=== PATIENT | male | born 1960 | race Caucasian/White ===

== ENCOUNTER 2017-02-10 21:14 | Outpatient (CLI) | payer MEDICAID ==
[~2017-02-10 21:14] MED LIST: ASP81CT PO; BENA20TA2 PO; DILT120C PO; HYDR-1231 PO; HYDR1TAB PO
== END 2017-02-11 06:05 | disposition home or self-care (01) ==
LOC: SLEEP 21:14
PROVIDERS: ATTEND Family Medicine
DX: G47.9 Sleep disorder, unspecified (principal); F39 Unspecified mood [affective] disorder; I10 Essential (primary) hypertension; R06.83 Snoring
CPT/HCPCS: 95810

== ENCOUNTER 2019-05-26 11:51 | Observation (INO) | payer MEDICAID, MEDICARE ==
[~2019-05-26] VITALS: Ht 190.5 cm; Wt 125.5 kg
--- OUTSIDE RECORDS SUMMARY | 2019-05-26 11:56 | XMS REPORT | Continuity of Care Document ---
Author Organization Unknown Address Unknown Allergies Active Description Code Type Severity Reaction Onset Reported/Identified Relationship to Patient Clinical Status Yes NKANo Known Allergies NKA Miscellaneous Allergy Mild N/A 01/02/2010 Medications There is no data. Problems Date Dx Coded Attending Type Code Diagnosis Diagnosed By 01/02/2010 Ot 716.91 01/02/2010 Ot 840.9 01/02/2010 Ot 959.2 01/02/2010 Ot E000.8 01/02/2010 Ot E030 01/02/2010 Ot E849.0 01/02/2010 Ot E880.9 11/02/2014 Ot 729.5 11/02/2014 Ot 729.81 11/02/2014 AMIRA WINSLOW TYPEWRITER OPERATOR AUTOMATIC Ot 840.4 11/02/2014 AMIRA WINSLOW TYPEWRITER OPERATOR AUTOMATIC Ot 959.2 11/02/2014 AMIRA WINSLOW TYPEWRITER OPERATOR AUTOMATIC Ot E000.8 11/02/2014 AMIRA WINSLOW TYPEWRITER OPERATOR AUTOMATIC Ot E818.1 11/24/2014 Ot 729.5 11/24/2014 Ot 729.81 11/24/2014 AMIRA WINSLOW TYPEWRITER OPERATOR AUTOMATIC Ot 840.4 11/24/2014 AMIRA WINSLOW TYPEWRITER OPERATOR AUTOMATIC Ot E000.8 11/24/2014 AMIRA WINSLOW TYPEWRITER OPERATOR AUTOMATIC Ot E888.9 11/24/2014 AMIRA WINSLOW TYPEWRITER OPERATOR AUTOMATIC Ot 840.4 11/24/2014 AMIRA WINSLOW TYPEWRITER OPERATOR AUTOMATIC Ot E000.8 11/24/2014 AMIRA WINSLOW TYPEWRITER OPERATOR AUTOMATIC Ot E888.9 11/26/2014 AMIRA WINSLOW TYPEWRITER OPERATOR AUTOMATIC Ot 780.4 11/26/2014 AMIRA WINSLOW TYPEWRITER OPERATOR AUTOMATIC Ot 840.4 11/26/2014 AMIRA WINSLOW TYPEWRITER OPERATOR AUTOMATIC Ot E000.8 11/26/2014 AMIRA WINSLOW TYPEWRITER OPERATOR AUTOMATIC Ot E849.0 11/26/2014 AMIRA WINSLOW TYPEWRITER OPERATOR AUTOMATIC Ot E888.9 11/26/2014 AMIRA WINSLOW TYPEWRITER OPERATOR AUTOMATIC Ot 780.4 11/26/2014 AMIRA WINSLOW TYPEWRITER OPERATOR AUTOMATIC Ot 840.4 11/26/2014 AMIRA WINSLOW TYPEWRITER OPERATOR AUTOMATIC Ot E000.8 11/26/2014 AMIRA WINSLOW TYPEWRITER OPERATOR AUTOMATIC Ot E849.0 11/26/2014 AMIRA WINSLOW TYPEWRITER OPERATOR AUTOMATIC Ot E888.9 12/15/2014 AMIRA WINSLOW TYPEWRITER OPERATOR AUTOMATIC Ot 840.4 12/15/2014 AMIRA WINSLOW TYPEWRITER OPERATOR AUTOMATIC Ot E000.8 12/15/2014 AMIRA WINSLOW TYPEWRITER OPERATOR AUTOMATIC Ot E888.9 12/17/2014 AMIRA WINSLOW TYPEWRITER OPERATOR AUTOMATIC Ot 840.4 12/17/2014 AMIRA WINSLOW TYPEWRITER OPERATOR AUTOMATIC Ot E000.8 12/17/2014 AMIRA WINSLOW TYPEWRITER OPERATOR AUTOMATIC Ot E888.9 12/17/2014 AMIRA WINSLOW TYPEWRITER OPERATOR AUTOMATIC Ot 780.4 12/17/2014 AMIRA WINSLOW TYPEWRITER OPERATOR AUTOMATIC Ot 840.4 12/17/2014 AMIRA WINSLOW TYPEWRITER OPERATOR AUTOMATIC Ot E000.8 12/17/2014 AMIRA WINSLOW TYPEWRITER OPERATOR AUTOMATIC Ot E849.0 12/17/2014 AMIRA WINSLOW TYPEWRITER OPERATOR AUTOMATIC Ot E888.9 12/18/2014 AMIRA WINSLOW TYPEWRITER OPERATOR AUTOMATIC Ot 780.4 12/18/2014 AMIRA WINSLOW TYPEWRITER OPERATOR AUTOMATIC Ot 840.4 12/18/2014 AMIRA WINSLOW TYPEWRITER OPERATOR AUTOMATIC Ot E000.8 12/18/2014 AMIRA WINSLOW TYPEWRITER OPERATOR AUTOMATIC Ot E849.0 12/18/2014 AMIRA WINSLOW TYPEWRITER OPERATOR AUTOMATIC Ot E888.9 12/25/2014 Ot 729.5 12/25/2014 Ot 729.81 12/25/2014 AMIRA WINSLOW TYPEWRITER OPERATOR AUTOMATIC Ot 840.4 12/25/2014 AMIRA WINSLOW TYPEWRITER OPERATOR AUTOMATIC Ot E000.8 12/25/2014 AMIRA WINSLOW TYPEWRITER OPERATOR AUTOMATIC Ot E888.9 12/25/2014 AMIRA WINSLOW TYPEWRITER OPERATOR AUTOMATIC Ot 780.4 12/25/2014 AMIRA WINSLOW TYPEWRITER OPERATOR AUTOMATIC Ot 840.4 12/25/2014 AMIRA WINSLOW TYPEWRITER OPERATOR AUTOMATIC Ot E000.8 12/25/2014 AMIRA WINSLOW TYPEWRITER OPERATOR AUTOMATIC Ot E849.0 12/25/2014 AMIRA WINSLOW TYPEWRITER OPERATOR AUTOMATIC Ot E888.9 12/25/2014 AMIRA WINSLOW TYPEWRITER OPERATOR AUTOMATIC Ot 780.4 12/25/2014 AMIRA WINSLOW TYPEWRITER OPERATOR AUTOMATIC Ot 840.4 12/25/2014 AMIRA WINSLOW TYPEWRITER OPERATOR AUTOMATIC Ot E000.8 12/25/2014 AMIRA WINSLOW TYPEWRITER OPERATOR AUTOMATIC Ot E849.0 12/25/2014 AMIRA WINSLOW TYPEWRITER OPERATOR AUTOMATIC Ot E888.9 02/04/2015 TESFAYE DO, MARIANGEL F Ot V57.1 02/04/2015 TESFAYE DO, MARIANGEL F Ot V58.78 02/04/2015 TESFAYE DO, MARIANGEL F Ot V57.1 02/04/2015 TESFAYE DO, MARIANGEL F Ot V58.78 02/04/2015 TESFAYE DO, MARIANGEL F Ot V57.1 02/04/2015 TESFAYE DO, MARIANGEL F Ot V58.78 02/12/2015 TESFAYE DO, MARIANGEL F Ot V57.1 02/12/2015 TESFAYE DO, MARIANGEL F Ot V58.78 03/06/2015 TESFAYE DO, MARIANGEL F Ot V57.1 03/06/2015 TESFAYE DO, MARIANGEL F Ot V58.78 03/06/2015 TESFAYE DO, MARIANGEL F Ot V57.1 03/06/2015 TESFAYE DO, MARIANGEL F Ot V58.78 03/06/2015 TESFAYE DO, MARIANGEL F Ot V57.1 03/06/2015 TESFAYE DO, MARIANGEL F Ot V58.78 03/09/2015 AMIRA WINSLOW TYPEWRITER OPERATOR AUTOMATIC Ot 780.4 03/09/2015 AMIRA WINSLOW TYPEWRITER OPERATOR AUTOMATIC Ot 840.4 03/09/2015 AMIRA WINSLOW TYPEWRITER OPERATOR AUTOMATIC Ot E000.8 03/09/2015 AMIRA WINSLOW TYPEWRITER OPERATOR AUTOMATIC Ot E849.0 03/09/2015 AMIRA WINSLOW TYPEWRITER OPERATOR AUTOMATIC Ot E888.9 04/06/2015 TESFAYE DO, MARIANGEL F Ot V57.1 04/06/2015 TESFAYE DO, MARIANGEL F Ot V58.78 04/06/2015 TESFAYE DO, MARIANGEL F Ot V57.1 04/06/2015 TESFAYE DO, MARIANGEL F Ot V58.78 04/07/2015 TESFAYE DO, MARIANGEL F Ot V57.1 04/07/2015 TESFAYE DO, MARIANGEL F Ot V58.78 04/08/2015 TESFAYE DO, MARIANGEL F Ot V57.1 04/08/2015 TESFAYE DO, MARIANGEL Spann Ot V58.78 04/08/2015 TESFAYE DO, MARIANGEL Spann Ot V57.1 04/08/2015 TESFAYE DO, MARIANGEL Spann Ot V58.78 04/09/2015 TESFAYE DO, MARIANGEL Spann Ot V57.1 04/09/2015 TESFAYE DO, MARIANGEL Spann Ot V58.78 05/06/2015 TESFAYE DO, MARIANGEL Spann Ot V57.1 05/06/2015 TESFAYE DO, MARIANGEL Spann Ot V58.78 05/06/2015 TESFAYE DO, MARIANGEL Spann Ot V57.1 05/06/2015 TESFAYE DO, MARIANGEL Spann Ot V58.78 05/07/2015 AMIRA WINSLOW TYPEWRITER OPERATOR AUTOMATIC Ot 840.4 05/07/2015 AMIRA WINSLOW TYPEWRITER OPERATOR AUTOMATIC Ot E000.8 05/07/2015 AMIRA WINSLOW TYPEWRITER OPERATOR AUTOMATIC Ot E888.9 05/07/2015 AMIRA WINSLOW TYPEWRITER OPERATOR AUTOMATIC Ot 780.4 05/07/2015 AMIRA WINSLOW TYPEWRITER OPERATOR AUTOMATIC Ot 840.4 05/07/2015 AMIRA WINSLOW TYPEWRITER OPERATOR AUTOMATIC Ot E000.8 05/07/2015 AMIRA WINSLOW TYPEWRITER OPERATOR AUTOMATIC Ot E849.0 05/07/2015 AMIRA WINSLOW TYPEWRITER OPERATOR AUTOMATIC Ot E888.9 05/07/2015 TESFAYE DO, MARIANGEL Spann Ot V57.1 05/07/2015 TESFAYE DO, MARIANGEL Spann Ot V58.78 06/09/2015 TESFAYE DO, MARIANGEL Spann Ot V57.1 06/09/2015 TESFAYE DO, MARIANGEL Spann Ot V58.78 06/15/2015 AMIRA WINSLOW TYPEWRITER OPERATOR AUTOMATIC Ot 840.4 06/15/2015 AMIRA WINSLOW TYPEWRITER OPERATOR AUTOMATIC Ot E000.8 06/15/2015 AMIRA WINSLOW TYPEWRITER OPERATOR AUTOMATIC Ot E888.9 11/25/2015 AURA MOSELEY TYPEWRITER OPERATOR AUTOMATIC Ot M43.16 11/25/2015 AURA MOSELEY TYPEWRITER OPERATOR AUTOMATIC Ot M54.16 02/11/2017 ESTIVEN RENAE MD Ot F39 UNSPECIFIED MOOD [AFFECTIVE] DISORDER 02/11/2017 ESTIVEN RENAE MD Ot G47.9 SLEEP DISORDER, UNSPECIFIED 02/11/2017 ESTIVEN RENAE MD Ot I10 ESSENTIAL (PRIMARY) HYPERTENSION 02/11/2017 ESTIVEN RENAE MD Ot R06.83 SNORING 02/13/2017 ESTIVEN RENAE MD Ot F39 UNSPECIFIED MOOD [AFFECTIVE] DISORDER 02/13/2017 ESTIVEN RENAE MD Ot G47.9 SLEEP DISORDER, UNSPECIFIED 02/13/2017 ESTIVEN RENAE MD Ot I10 ESSENTIAL (PRIMARY) HYPERTENSION 02/13/2017 ESTIVEN RENAE MD Ot R06.83 SNORING Procedures There is no data. Results There is no data. Encounters ACCT No. Visit Date/Time Discharge Status Pt. Type Provider Facility Loc./Unit Complaint [id number] 02/10/2017 21:14:00 02/11/2017 06:05:00 DIS Outpatient ESTIVEN RENAE MD [facility] SLEEP SNORING,HTN,MOOD DISORDER [id number] 11/18/2015 10:30:00 11/18/2015 23:59:59 CLS Outpatient AURA MOSELEY APRN [facility] REHAB [id number] 05/07/2015 08:03:00 06/09/2015 16:18:00 DIS Outpatient TESFAYE HUTCHINS MARIANGEL Zana [facility] REHAB [id number] 04/07/2015 08:57:00 04/07/2015 00:01:00 DIS Outpatient MARIANGEL CARLIN DO [facility] REHAB [id number] 11/24/2014 11:27:00 11/24/2014 23:59:59 CLS Outpatient AMIRA WINSLOW APRN [facility] RAD [id number] 11/11/2014 12:22:00 11/11/2014 23:59:59 CLS Outpatient AMIRA WINSLOW APRN [facility] RAD [id number] 11/02/2014 15:11:00 11/02/2014 16:07:00 DIS Emergency AMIRA WINSLOW APRN [facility] ER [id number] 05/07/2015 13:45:00 Document Registration [id number] 05/07/2015 13:45:00 Document Registration [id number] 08/31/2011 15:34:00 Document Registration [id number] 01/02/2010 09:40:00 Document Registration [email or web address] 05/07/2015 08:03:32 ACT Document Registration
[2019-05-26 12:16] LABS: BASOPHILS # (AUTO) 0.1 10^3/uL (0.0-0.1); BASOPHILS % (AUTO) 1 % (0-10); EOSINOPHILS # (AUTO) 0.5 10^3/uL (0.0-0.3); EOSINOPHILS % (AUTO) 4 % (0-10); HEMATOCRIT 50 % (40-54); HEMOGLOBIN 16.6 G/DL (13.3-17.7); LYMPHOCYTES # (AUTO) 4.1 X 10^3 (1.0-4.0); LYMPHOCYTES % (AUTO) 35 % (12-44); MEAN CORPUSCULAR HEMOGLOBIN 31 PG (25-34); MEAN CORPUSCULAR HGB CONC 33 G/DL (32-36); MEAN CORPUSCULAR VOLUME 93 FL (80-99); MEAN PLATELET VOLUME 11.2 FL (7.4-10.4); MONOCYTES # (AUTO) 1.6 X 10^3 (0.0-1.0); MONOCYTES % (AUTO) 14 % (0-12); NEUTROPHILS # (AUTO) 5.4 X 10^3 (1.8-7.8); NEUTROPHILS % (AUTO) 46 % (42-75); PLATELET COUNT 183 10^3/uL (130-400); RED CELL DISTRIBUTION WIDTH 14.5 % (10.0-14.5); WHITE BLOOD COUNT 11.7 10^3/uL (4.3-11.0)
--- NOTE | 2019-05-26 12:20 | ED Neurological Problem ---
General Chief Complaint: Neuro-Stroke Like Symptoms Stated Complaint: BP 170/110, MEMORY ISSUES Nursing Triage Note: PT AMB TO RM 9 WITH COMPLAINT OF MEMORY LOSS. PT KNOWS NAME, BUT CANNOT STATE DATE, YEAR OR PRESIDENT. STATES SYMPYOTMS START AROUND 1130. LKWT 0930. Nursing Sepsis Screen: No Definite Risk Source: patient Exam Limitations: no limitations History of Present Illness Date Seen by Provider: May 26, 2019 Time Seen by Provider: 11:57 Initial Comments Here with report of memory loss that was noted at about 11:30 AM this morning. Last him well time 0 9:30 this morning. notes that he was acting confused and could not state information that should've been known to have like when he did yesterday. Confused as to date and year. Currently does know where he is at and who he and his are. Patient seems afraid and somewhat anxious. noted that his blood pressure was elevated. Denies nausea, vomiting, chest pain or breathing problems. Never had anything like this before. Timing/Duration: 1-3 hours Severity: moderate Associated Symptoms: confusion; No fever/chills, No nausea/vomiting, No par esthesia, No slurred speech, No trouble walking, No weakness Allergies and Home Medications Allergies Coded Allergies: NKANo Known Allergies (Verified Allergy, Mild, 05/26/19) Home Medications Aspirin 81 Mg Chew, 81 MG PO DAILY, (Reported) Atorvastatin Calcium 10 Mg Tablet, 10 MG PO HS Prescribed by: HERMELINDA DYSON on 05/27/19730 Benazepril Hcl 20 Mg Tablet, 40 MG PO DAILY, (Reported) Diltiazem Hcl 120 Mg Cap.sr.24h, 120 MG PO DAILY, (Reported) Omeprazole 20 Mg Capsule.dr, 20 MG PO DAILY Prescribed by: HERMELINDA DYSON on 05/27/19730 Patient Home Medication List Home Medication List Reviewed: Yes Review of Systems Review of Systems Constitutional: see HPI; No chills, No fever Eyes: No Symptoms Reported Ears, Nose, Mouth, Throat: no symptoms reported Respiratory: No cough, No short of breath Cardiovascular: No chest pain, No edema, No palpitations Gastrointestinal: No abdominal pain, No nausea, No vomiting Genitourinary: no symptoms reported Musculoskeletal: no symptoms reported Skin: no symptoms reported Psychiatric/Neurological: See HPI, Cognitive Dysfunction; Denies Numbness, Denies Tingling, Denies Weakness Endocrine: No Symptoms Reported All Other Systems Reviewed Negative Unless Noted: Yes Past Laarwqg-Ufeopb-Muiofd Hx Past Med/Social Hx: Reviewed Nursing Past Med/Soc Hx Patient Social History Alcohol Use: Occasionally Uses Alcohol Beverage of Choice: Beer Recreational Drug Use: No Smoking Status: Current Everyday Smoker Type Used: Cigarettes Recent Foreign Travel: No Contact w/Someone Who Travel: No Recent Infectious Disease Expo: No Physical Abuse: No Sexual Abuse: No Mistreated: No Fear: No Immunizations Up To Date Tetanus Booster (TDap): Unknown PED Vaccines UTD: Yes Past Medical History Surgeries: Yes Orthopedic Respiratory: Yes Asthma Cardiac: Yes Hypertension Neurological: No Gastrointestinal: No Musculoskeletal: No Endocrine: No Cancer: No Psychosocial: No Family Medical History Reviewed Nursing Family Hx No Pertinent Family Hx Physical Exam Vital Signs Vital Signs - First Documented 05/26/19 11:58 Temp 97.8 Pulse 84 Resp 14 B/P (MAP) 156/112 (127) Pulse Ox 96 O2 Delivery Room Air Capillary Refill : Less Than 3 Seconds Height, Weight, BMI Height: 6'3.00" Weight: 260lbs. oz. 117.309776op; BMI Method:Stated General Appearance: WD/WN, mild distress (anxious) HEENT: PERRL/EOMI (pinpoint bilateral), pharynx normal Neck: full range of motion, supple Respiratory: lungs clear, normal breath sounds Cardiovascular: regular rate, rhythm, no murmur Gastrointestinal: non tender, soft Back: normal inspection, no CVA tenderness, no vertebral tenderness Extremities: non-tender, normal inspection Neurologic/Psychiatric: alert, oriented x 3 Crainal Nerves: normal hearing, normal speech, PERRL, other (cannot state year. Had difficulty with month.) Coordination/Gait: normal finger to nose, normal gait Motor/Sensory: no motor deficit, no sensory deficit, no pronator drift Skin: normal color, warm/dry Stroke NIH Stroke Scale Assessment Level of Consciousness: 0=Alert (0), Level of Consciousness-Questions: 1=Answers one question (1), LOC Commands: 0=Performs both tasks (0), Visual Mantilla: 0=No visual loss (0), Facial Movement (Facial Paresis): 0=Normal symmetrical mnt (0), Motor Function-Arms Right: 0=No drift (0), Motor Function-Arms Left: 0=No drift (0), Motor Function-Legs Right: 0=No drift (0), Motor Function-Legs Left: 0=No drift (0), Limb Ataxia: 0=Absent (0), Sensory: 0=Normal:no loss (0), Best Language: 0=No aphasia (0), Dysarthria: 0=Normal (0), Extinction & Inattention: 0=No abnormality (0), Total: Progress/Results/Core Measures Results/Orders Lab Results Laboratory Tests Test 05/26/19 12:04 05/26/19 12:05 05/26/19 13:30 Range/Units Glucometer 88 70-110 MG/DL White Blood Count 11.7 H 4.3-11.0 10^3/uL Red Blood Count 5.35 4.35-5.85 10^6/uL Hemoglobin 16.6 13.3-17.7 G/DL Hematocrit 50 40-54 % Mean Corpuscular Volume 93 80-99 FL Mean Corpuscular Hemoglobin 31 25-34 PG Mean Corpuscular Hemoglobin Concent 33 32-36 G/DL Red Cell Distribution Width 14.5 10.0-14.5 % Platelet Count 183 130-400 10^3/uL Mean Platelet Volume 11.2 H 7.4-10.4 FL Neutrophils (%) (Auto) 46 42-75 % Lymphocytes (%) (Auto) 35 12-44 % Monocytes (%) (Auto) 14 H 0-12 % Eosinophils (%) (Auto) 4 0-10 % Basophils (%) (Auto) 1 0-10 % Neutrophils # (Auto) 5.4 1.8-7.8 X 10^3 Lymphocytes # (Auto) 4.1 H 1.0-4.0 X 10^3 Monocytes # (Auto) 1.6 H 0.0-1.0 X 10^3 Eosinophils # (Auto) 0.5 H 0.0-0.3 10^3/uL Basophils # (Auto) 0.1 0.0-0.1 10^3/uL Prothrombin Time 12.9 12.2-14.7 SEC INR Comment 0.9 0.8-1.4 Activated Partial Thromboplast Time 28 24-35 SEC D-Dimer 0.26 0.00-0.49 UG/ML Sodium Level 142 135-145 MMOL/L Potassium Level 4.2 3.6-5.0 MMOL/L Chloride Level 105 98-107 MMOL/L Carbon Dioxide Level 25 21-32 MMOL/L Anion Gap 12 5-14 MMOL/L Blood Urea Nitrogen 14 7-18 MG/DL Creatinine 0.97 0.60-1.30 MG/DL Estimat Glomerular Filtration Rate > 60 BUN/Creatinine Ratio 14 Glucose Level 87 70-105 MG/DL Calcium Level 10.0 8.5-10.1 MG/DL Corrected Calcium 9.7 8.5-10.1 MG/DL Total Bilirubin 0.5 0.1-1.0 MG/DL Aspartate Amino Transf (AST/SGOT) 16 5-34 U/L Alanine Aminotransferase (ALT/SGPT) 25 0-55 U/L Alkaline Phosphatase 80 40-136 U/L Troponin I < 0.028 <0.028 NG/ML Total Protein 7.3 6.4-8.2 GM/DL Albumin 4.4 3.2-4.5 GM/DL Thyroid Stimulating Hormone (TSH) 1.99 0.35-4.94 UIU/ML Urine Color YELLOW Urine Clarity CLEAR Urine pH 7 5-9 Urine Specific [place] 1.005 L 1.016-1.022 Urine Protein NEGATIVE NEGATIVE Urine Glucose (UA) NEGATIVE NEGATIVE Urine Ketones NEGATIVE NEGATIVE Urine Nitrite NEGATIVE NEGATIVE Urine Bilirubin NEGATIVE NEGATIVE Urine Urobilinogen NORMAL NORMAL MG/DL Urine Leukocyte Esterase NEGATIVE NEGATIVE Urine RBC (Auto) 1+ H NEGATIVE Urine RBC RARE /HPF Urine WBC NONE /HPF Urine Squamous Epithelial Cells NONE /HPF Urine Crystals NONE /LPF Urine Bacteria NEGATIVE /HPF Urine Casts NONE /LPF Urine Mucus NEGATIVE /LPF Urine Culture Indicated NO Urine Opiates Screen NEGATIVE NEGATIVE Urine Oxycodone Screen NEGATIVE NEGATIVE Urine Methadone Screen NEGATIVE NEGATIVE Urine Propoxyphene Screen NEGATIVE NEGATIVE Urine Barbiturates Screen NEGATIVE NEGATIVE Ur Tricyclic Antidepressants Screen NEGATIVE NEGATIVE Urine Phencyclidine Screen NEGATIVE NEGATIVE Urine Amphetamines Screen NEGATIVE NEGATIVE Urine Methamphetamines Screen NEGATIVE NEGATIVE Urine Benzodiazepines Screen NEGATIVE NEGATIVE Urine Cocaine Screen NEGATIVE NEGATIVE Urine Cannabinoids Screen NEGATIVE NEGATIVE My Orders Orders - ROBERTO ROMANO MD Cbc With Automated Diff (05/26/19 12:04) Protime With Inr (05/26/19 12:04) Partial Thromboplastin Time (05/26/19 12:04) Comprehensive Metabolic Panel (05/26/19 12:04) Fibrin Degradation Products (05/26/19 12:04) Troponin I (05/26/19 12:04) Ua Culture If Indicated (05/26/19 12:04) Chest 1 View, Ap/Pa Only (05/26/19 12:04) Ekg Tracing (05/26/19 12:04) Nothing By Mouth (05/26/19 Dinner) Accucheck Stat ONCE (05/26/19 12:04) Ed Iv/Invasive Line Start (05/26/19 12:04) Vital Signs Stroke Patient Q15M (05/26/19 12:04) Ct Head Wo-R/O Stroke (05/26/19 12:04) O2 (05/26/19 12:04) Intake & Output 06,14,22 (05/26/19 12:04) Monitor-Rhythm Ecg Trace Only (05/26/19 12:04) Dysphagia Screening Tool (05/26/19 12:04) Lipid Panel (05/27/19 06:00) Ct Angio Head/Neck (05/26/19 12:40) Iohexol Injection (Omnipaque 350 Mg/Ml 1 (05/26/19 13:00) Received Contrast (Hold Metformin- Contr (05/26/19 13:00) Ns (Ivpb) (Sodium Chloride 0.9% Ivpb Bag (05/26/19 13:00) Ed Iv/Invasive Line Start (05/26/19 14:10) Lactated Ringers (Lr 1000 Ml Iv Solution (05/26/19 14:10) Thyroid Stimulating Hormone (05/26/19 14:11) Lactated Ringers (Lr 1000 Ml Iv Solution (05/26/19 14:05) Drug Screen Stat (Urine) (05/26/19 14:21) Vital Signs/I&O 05/26/19 11:58 Temp 97.8 Pulse 84 Resp 14 B/P (MAP) 156/112 (127) Pulse Ox 96 O2 Delivery Room Air 05/27/19 00:00 Intake Total 1000 ml Balance 1000 ml Blood Pressure Mean: 127 FSBG Bedside Testing Finger Stick Blood Glucose: 88 Progress Progress Note : Progress Note Seen in our evaluated. Patient has no focal deficits other than memory impairment. We will initiate stroke protocol order set. IV, labs, EKG and chest x-ray ordered. CT head ordered. Ultimately CT angiogram of the head and neck was ordered as well. Patient remains 0 on the stroke scale and no indication for TPA. Appears to be more in line with transient global amnesia. I did discuss the case with the stroke neurologist, Dr. Lake, [facility]. We reviewed all the findings and concerns and this does appear to be similar to transient global amnesia. She is recommending observation overnight and MRI. I did discuss all this with the patient and family. Initially he was somewhat resistant to admission but then agreed. His will stay with him. He is still having repetitive questioning and memory lapse. 1602: I discussed the case with Dr. Jordan and she accepts patient for admission, observation status. Initial ECG Impression Date: May 26, 2019 Initial ECG Impression Time: 12:18 Initial ECG Rate: 79 Initial ECG Rhythm: Normal Sinus Comment Sinus rhythm with normal axis. No evidence of ST elevation [place]. No previous available for comparison. Interpreted by me. Diagnostic Imaging Diagonstic Imaging: CT Plain Films/CT/US/NM/MRI: head Comments NAME: PENELOPE ARECHIGA [facility] REC#: [id number] PT STATUS: REG ER : 1960 PHYSICIAN: ROBERTO ROMANO MD ADMIT DATE: 05/26/19/ER Signed Date of Exam: 05/26/19 CT HEAD WO-R/O STROKE PROCEDURE: CT head wo r/o stroke. TECHNIQUE: Multiple contiguous axial images were obtained through the brain without the use of intravenous contrast. Auto Exposure Controls were utilized during the CT exam to meet ALARA standards for radiation dose reduction. INDICATION: Stroke, confusion. COMPARISON: 11/24/2014. FINDINGS: There is stable age-related cerebral volume loss and chronic small vessel ischemic changes. There is no midline shift or mass effect. There is no hemorrhage or evidence of acute ischemia. No dense vessel sign is seen. There is no mass. The bony calvarium, paranasal sinuses, and mastoids are clear. IMPRESSION: No acute intracranial abnormalities. Dictated by: Dictated on workstation # [id number] Dict: 05/26/19 1242 Trans: 05/26/19 1257 Interpreted by: HAO NUNN Electronically signed by: HAO NUNN 05/26/19 1257 Diagonstic Imaging: Xray Plain Films/CT/US/NM/MRI: chest Comments NAME: PENELOPE ARECHIGA [facility] REC#: [id number] PT STATUS: REG ER : 1960 PHYSICIAN: ROBERTO ROMANO MD ADMIT DATE: 05/26/19/ER Signed Date of Exam: 05/26/19 CHEST 1 VIEW, AP/PA ONLY INDICATION: Memory loss. COMPARISON: None. FINDINGS: Single view of the chest demonstrates clear lungs bilaterally. The heart is normal. There is no pneumothorax. Osseous structures are age-appropriate. IMPRESSION: Negative chest. Dictated by: Dictated on workstation # [id number] Dict: 05/26/19 1303 Trans: 05/26/19 1310 Interpreted by: HAO NUNN Electronically signed by: HAO NUNN 05/26/19 1310 Diagonstic Imaging: CT Plain Films/CT/US/NM/MRI: head Comments NAME: PENELOPE ARECHIGA [facility] REC#: [id number] PT STATUS: REG ER : 1960 PHYSICIAN: ROBERTO ROMANO MD ADMIT DATE: 05/26/19/ER Signed Date of Exam: 05/26/19 CT ANGIO HEAD/NECK PROCEDURE: CT angiography of the head and CT angiography of the neck with and without contrast. TECHNIQUE: Contiguous noncontrast images were obtained from the skull base through the vertex. After intravenous contrast administration, helical CT angiography of the neck was performed. Source data was reformatted into multiple MIP projections. Delayed post contrast acquisition was also obtained. Auto Exposure Controls were utilized during the CT exam to meet ALARA standards for radiation dose reduction. INDICATION: Stroke, memory loss. COMPARISON: None. FINDINGS: Visualized arch anatomy is normal. Origins of the great vessels are intact. There is mild atherosclerosis of the bilateral common carotid bulbs. No stenosis is seen. There is no dissection. Vertebral arteries are grossly normal. The visualized portions of the jackson of [place], distal intracranial branches and venous structures are normal. The course and caliber of the basilar artery is normal. There is no aneurysm or AVM. No large vessel occlusion is seen. There is no abnormal enhancement or mass. IMPRESSION: 1. Mild atherosclerosis of the bilateral carotid bulbs. No stenosis identified. 2. No large vessel occlusion identified. 3. No aneurysm, AVM, or mass. Dictated by: Dictated on workstation # [id number] Dict: 05/26/19 1324 Trans: 05/26/19 1410 Interpreted by: HAO NUNN Electronically signed by: HAO NUNN 05/26/19 1410 Departure Communication (Admissions) Time/Spoke to Admitting Phy: 16:02 Impression Primary Impression: Transient global amnesia Disposition: ADMITTED INPATIENT Condition: Stable Admissions Decision to Admit Reason: Admit from ER (General) Decision to Admit/Date: May 26, 2019 Time/Decision to Admit Time: 16:02 Departure-Patient Inst. Referrals: [facility] [place] (PCP) Primary Care Physician DONNELL JARAMILLO APRN (Family) Primary Care Physician Scripts Omeprazole (Omeprazole) 20 Mg Capsule. 20 MG PO DAILY for 30 Days, #30 CAP Prov: CESAR JORDAN DO 05/27/19 Atorvastatin Calcium (Atorvastatin Calcium) 10 Mg Tablet 10 MG PO HS for 30 Days, #30 TAB Prov: CESAR JORDAN DO 05/27/19 ROBERTO ROMANO MD May 26, 2019 12:20
[2019-05-26 12:30] LABS: INR 0.9 (0.8-1.4); PROTHROMBIN TIME PATIENT 12.9 SEC (12.2-14.7)
[2019-05-26 12:31] LABS: FIBRIN DEGRADATION PRODUCTS 0.26 UG/ML (0.00-0.49)
[2019-05-26 12:33] LABS: ALANINE AMINOTRANSFERASE 25 U/L (0-55); ALBUMIN 4.4 GM/DL (3.2-4.5); ALKALINE PHOSPHATASE 80 U/L (40-136); BILIRUBIN,TOTAL 0.5 MG/DL (0.1-1.0); BUN/CREATININE RATIO 14; CARBON DIOXIDE 25 MMOL/L (21-32); CHLORIDE 105 MMOL/L (98-107); CREATININE SERUM 0.97 MG/DL (0.60-1.30); GFR ESTIMATED > 60; GLUCOSE 87 MG/DL (70-105); POTASSIUM 4.2 MMOL/L (3.6-5.0); SODIUM 142 MMOL/L (135-145); TOTAL PROTEIN 7.3 GM/DL (6.4-8.2)
--- NOTE | 2019-05-26 12:46 | Diagnostic Imaging Report ---
PROCEDURE: CT head wo r/o stroke. TECHNIQUE: Multiple contiguous axial images were obtained through the brain without the use of intravenous contrast. Auto Exposure Controls were utilized during the CT exam to meet ALARA standards for radiation dose reduction. INDICATION: Stroke, confusion. COMPARISON: 11/24/2014. FINDINGS: There is stable age-related cerebral volume loss and chronic small vessel ischemic changes. There is no midline shift or mass effect. There is no hemorrhage or evidence of acute ischemia. No dense vessel sign is seen. There is no mass. The bony calvarium, paranasal sinuses, and mastoids are clear. IMPRESSION: No acute intracranial abnormalities. Dictated by: Dictated on workstation # [id number]
[2019-05-26] MEDS ORDERED: IOHEXOL 350 MG/ML 100 ML (OMNIPAQUE 350) VIAL IV ONE (13:00)
[2019-05-26] MEDS ORDERED: HOLD METFORMIN - RECEIVED CONTRAST 20 ML VIAL IV SCH (13:00)
[2019-05-26] MEDS ORDERED: NS 100 ML (IVPB) BAG IV ONE (13:00)
--- NOTE | 2019-05-26 13:06 | Diagnostic Imaging Report ---
INDICATION: Memory loss. COMPARISON: None. FINDINGS: Single view of the chest demonstrates clear lungs bilaterally. The heart is normal. There is no pneumothorax. Osseous structures are age-appropriate. IMPRESSION: Negative chest. Dictated by: Dictated on workstation # [id number]
--- NOTE | 2019-05-26 13:34 | Diagnostic Imaging Report ---
PROCEDURE: CT angiography of the head and CT angiography of the neck with and without contrast. TECHNIQUE: Contiguous noncontrast images were obtained from the skull base through the vertex. After intravenous contrast administration, helical CT angiography of the neck was performed. Source data was reformatted into multiple MIP projections. Delayed post contrast acquisition was also obtained. Auto Exposure Controls were utilized during the CT exam to meet ALARA standards for radiation dose reduction. INDICATION: Stroke, memory loss. COMPARISON: None. FINDINGS: Visualized arch anatomy is normal. Origins of the great vessels are intact. There is mild atherosclerosis of the bilateral common carotid bulbs. No stenosis is seen. There is no dissection. Vertebral arteries are grossly normal. The visualized portions of the havas[place] of [place], distal intracranial branches and venous structures are normal. The course and caliber of the basilar artery is normal. There is no aneurysm or AVM. No large vessel occlusion is seen. There is no abnormal enhancement or mass. IMPRESSION: 1. Mild atherosclerosis of the bilateral carotid bulbs. No stenosis identified. 2. No large vessel occlusion identified. 3. No aneurysm, AVM, or mass. Dictated by: Dictated on workstation # [id number]
[2019-05-26 13:39] LABS: BILIRUBIN,URINE NEGATIVE (NEGATIVE); CLARITY,URINE CLEAR; COLOR,URINE YELLOW; GLUCOSE, URINE (UA) NEGATIVE (NEGATIVE); KETONES,URINE NEGATIVE (NEGATIVE); LEUKOCYTE ESTERASE ,URINE NEGATIVE (NEGATIVE); NITRITE,URINE NEGATIVE (NEGATIVE); PH,URINE 7 (5-9); PROTEIN,URINE NEGATIVE (NEGATIVE); UROBILINOGEN,URINE NORMAL (NORMAL)
[2019-05-26 13:46] LABS: RBC,URINE RARE /HPF
[2019-05-26 13:47] LABS: BACTERIA,URINE NEGATIVE /HPF
[2019-05-26] MEDS ORDERED: LACTATED RINGERS 1,000 ML IV ONE ×2 (14:05→14:10)
[2019-05-26 14:50] LABS: AMPHETAMINE SCREEN, URINE NEGATIVE (NEGATIVE); BARBITURATE SCREEN URINE NEGATIVE (NEGATIVE); BENZODIAZEPINES SCREEN URINE NEGATIVE (NEGATIVE); CANNABINOID SCREEN, URINE NEGATIVE (NEGATIVE); COCAINE SCREEN URINE NEGATIVE (NEGATIVE); METHADONE STAT NEGATIVE (NEGATIVE); METHAMPHETAMINE SCREEN URINE S NEGATIVE (NEGATIVE); OPIATE SCREEN URINE NEGATIVE (NEGATIVE); OXYCODONE STAT NEGATIVE (NEGATIVE); PROPOXYPHENE STAT NEGATIVE (NEGATIVE); TRICYCLIC ANTIDEPRESSANTS SCRE NEGATIVE (NEGATIVE)
--- OUTSIDE RECORDS SUMMARY | 2019-05-26 16:39 | XMS REPORT | Continuity of Care Document ---
[...] 729.5 11/02/2014 Ot 729.81 11/02/2014 AMIRA WINSLOW ROLL EDGE MACHINE OPERATOR Ot 840.4 11/02/2014 AMIRA WINSLOW ROLL EDGE MACHINE OPERATOR Ot 959.2 11/02/2014 AMIRA WINSLOW ROLL EDGE MACHINE OPERATOR Ot E000.8 11/02/2014 AMIRA WINSLOW ROLL EDGE MACHINE OPERATOR Ot E818.1 11/24/2014 Ot 729.5 11/24/2014 Ot 729.81 11/24/2014 AMIRA WINSLOW ROLL EDGE MACHINE OPERATOR Ot 840.4 11/24/2014 AMIRA WINSLOW ROLL EDGE MACHINE OPERATOR Ot E000.8 11/24/2014 AMIRA WINSLOW ROLL EDGE MACHINE OPERATOR Ot E888.9 11/24/2014 AMIRA WINSLOW ROLL EDGE MACHINE OPERATOR Ot 840.4 11/24/2014 AMIRA WINSLOW ROLL EDGE MACHINE OPERATOR Ot E000.8 11/24/2014 AMIRA WINSLOW ROLL EDGE MACHINE OPERATOR Ot E888.9 11/26/2014 AMIRA WINSLOW ROLL EDGE MACHINE OPERATOR Ot 780.4 11/26/2014 AMIRA WINSLOW ROLL EDGE MACHINE OPERATOR Ot 840.4 11/26/2014 AMIRA WINSLOW ROLL EDGE MACHINE OPERATOR Ot E000.8 11/26/2014 AMIRA WINSLOW ROLL EDGE MACHINE OPERATOR Ot E849.0 11/26/2014 AMIRA WINSLOW ROLL EDGE MACHINE OPERATOR Ot E888.9 11/26/2014 AMIRA WINSLOW ROLL EDGE MACHINE OPERATOR Ot 780.4 11/26/2014 AMIRA WINSLOW ROLL EDGE MACHINE OPERATOR Ot 840.4 11/26/2014 AMIRA WINSLOW ROLL EDGE MACHINE OPERATOR Ot E000.8 11/26/2014 AMIRA WINSLOW ROLL EDGE MACHINE OPERATOR Ot E849.0 11/26/2014 AMIRA WINSLOW ROLL EDGE MACHINE OPERATOR Ot E888.9 12/15/2014 AMIRA WINSLOW ROLL EDGE MACHINE OPERATOR Ot 840.4 12/15/2014 AMIRA WINSLOW ROLL EDGE MACHINE OPERATOR Ot E000.8 12/15/2014 AMIRA WINSLOW ROLL EDGE MACHINE OPERATOR Ot E888.9 12/17/2014 AMIRA WINSLOW ROLL EDGE MACHINE OPERATOR Ot 840.4 12/17/2014 AMIRA WINSLOW ROLL EDGE MACHINE OPERATOR Ot E000.8 12/17/2014 AMIRA WINSLOW ROLL EDGE MACHINE OPERATOR Ot E888.9 12/17/2014 AMIRA WINSLOW ROLL EDGE MACHINE OPERATOR Ot 780.4 12/17/2014 AMIRA WINSLOW ROLL EDGE MACHINE OPERATOR Ot 840.4 12/17/2014 AMIRA WINSLOW ROLL EDGE MACHINE OPERATOR Ot E000.8 12/17/2014 AMIRA WINSLOW ROLL EDGE MACHINE OPERATOR Ot E849.0 12/17/2014 AMIRA WINSLOW ROLL EDGE MACHINE OPERATOR Ot E888.9 12/18/2014 AMIRA WINSLOW ROLL EDGE MACHINE OPERATOR Ot 780.4 12/18/2014 AMIRA WINSLOW ROLL EDGE MACHINE OPERATOR Ot 840.4 12/18/2014 AMIRA WINSLOW ROLL EDGE MACHINE OPERATOR Ot E000.8 12/18/2014 AMIRA WINSLOW ROLL EDGE MACHINE OPERATOR Ot E849.0 12/18/2014 AMIRA WINSLOW ROLL EDGE MACHINE OPERATOR Ot E888.9 12/25/2014 Ot 729.5 12/25/2014 Ot 729.81 12/25/2014 AMIRA WINSLOW ROLL EDGE MACHINE OPERATOR Ot 840.4 12/25/2014 AMIRA WINSLOW ROLL EDGE MACHINE OPERATOR Ot E000.8 12/25/2014 AMIRA WINSLOW ROLL EDGE MACHINE OPERATOR Ot E888.9 12/25/2014 AMIRA WINSLOW ROLL EDGE MACHINE OPERATOR Ot 780.4 12/25/2014 AMIRA WINSLOW ROLL EDGE MACHINE OPERATOR Ot 840.4 12/25/2014 AMIRA WINSLOW ROLL EDGE MACHINE OPERATOR Ot E000.8 12/25/2014 AMIRA WINSLOW ROLL EDGE MACHINE OPERATOR Ot E849.0 12/25/2014 AMIRA WINSLOW ROLL EDGE MACHINE OPERATOR Ot E888.9 12/25/2014 AMIRA WINSLOW ROLL EDGE MACHINE OPERATOR Ot 780.4 12/25/2014 AMIRA WINSLOW ROLL EDGE MACHINE OPERATOR Ot 840.4 12/25/2014 AMIRA WINSLOW ROLL EDGE MACHINE OPERATOR Ot E000.8 12/25/2014 AMIRA WINSLOW ROLL EDGE MACHINE OPERATOR Ot E849.0 12/25/2014 AMIRA WINSLOW ROLL EDGE MACHINE OPERATOR Ot E888.9 02/04/2015 TESFAYE DO, MARIANGEL F [...] MARIANGEL F Ot V58.78 03/09/2015 AMIRA WINSLOW ROLL EDGE MACHINE OPERATOR Ot 780.4 03/09/2015 AMIRA WINSLOW ROLL EDGE MACHINE OPERATOR Ot 840.4 03/09/2015 AMIRA WINSLOW ROLL EDGE MACHINE OPERATOR Ot E000.8 03/09/2015 AMIRA WINSLOW ROLL EDGE MACHINE OPERATOR Ot E849.0 03/09/2015 AMIRA WINSLOW ROLL EDGE MACHINE OPERATOR Ot E888.9 04/06/2015 TESFAYE DO, MARIANGEL F [...] MARIANGEL Spann Ot V58.78 05/07/2015 AMIRA WINSLOW ROLL EDGE MACHINE OPERATOR Ot 840.4 05/07/2015 AMIRA WINSLOW ROLL EDGE MACHINE OPERATOR Ot E000.8 05/07/2015 AMIRA WINSLOW ROLL EDGE MACHINE OPERATOR Ot E888.9 05/07/2015 AMIRA WINSLOW ROLL EDGE MACHINE OPERATOR Ot 780.4 05/07/2015 AMIRA WINSLOW ROLL EDGE MACHINE OPERATOR Ot 840.4 05/07/2015 AMIRA WINSLOW ROLL EDGE MACHINE OPERATOR Ot E000.8 05/07/2015 AMIRA WINSLOW ROLL EDGE MACHINE OPERATOR Ot E849.0 05/07/2015 AMIRA WINSLOW ROLL EDGE MACHINE OPERATOR Ot E888.9 05/07/2015 TESFAYE DO, MARIANGEL Spann Ot V57.1 05/07/2015 TESFAYE DO, MARIANGEL Spann Ot V58.78 06/09/2015 TESFAYE DO, MARIANGEL Spann Ot V57.1 06/09/2015 TESFAYE DO, MARIANGEL Spann Ot V58.78 06/15/2015 AMIRA WINSLOW ROLL EDGE MACHINE OPERATOR Ot 840.4 06/15/2015 AMIRA WINSLOW ROLL EDGE MACHINE OPERATOR Ot E000.8 06/15/2015 AMIRA WINSLOW ROLL EDGE MACHINE OPERATOR Ot E888.9 11/25/2015 AURA MOSELEY ROLL EDGE MACHINE OPERATOR Ot M43.16 11/25/2015 AURA MOSELEY ROLL EDGE MACHINE OPERATOR Ot M54.16 02/11/2017 ESTIVEN RENAE MD Ot F39 UNSPECIFIED MOOD [AFFECTIVE] DISORDER 02/11/2017 ESTIVEN RENAE MD Ot G47.9 SLEEP DISORDER, UNSPECIFIED 02/11/2017 ESTIVEN RENAE MD Ot I10 ESSENTIAL (PRIMARY) HYPERTENSION 02/11/2017 ESTVIEN RENAE MD, Ot R06.83 SNORING 02/13/2017 ESTIVEN RENAE MD, Ot F39 UNSPECIFIED MOOD [AFFECTIVE] DISORDER 02/13/2017 ESTIVEN RENAE MD, Ot G47.9 SLEEP DISORDER, UNSPECIFIED 02/13/2017 ESTIVEN RENAE MD, Ot I10 ESSENTIAL (PRIMARY) HYPERTENSION 02/13/2017 ESTIVEN RENAE MD, Ot R06.83 SNORING Procedures There is no data. Results Test Result Range Capillary blood glucose measurement by glucometer (mass/volume) - 05/26/19 12:04 Capillary blood glucose measurement by glucometer (mass/volume) 88 mg/dL 70-110 Complete blood count (CBC) with automated white blood cell (WBC) differential - 05/26/19 12:05 Blood leukocytes automated count (number/volume) 11.7 10*3/uL 4.3-11.0 Blood erythrocytes automated count (number/volume) 5.35 10*6/uL 4.35-5.85 Venous blood hemoglobin measurement (mass/volume) 16.6 g/dL 13.3-17.7 Blood hematocrit (volume fraction) 50 % 40-54 Automated erythrocyte mean corpuscular volume 93 [foz_us] 80-99 Automated erythrocyte mean corpuscular hemoglobin (mass per erythrocyte) 31 pg 25-34 Automated erythrocyte mean corpuscular hemoglobin concentration measurement (mass/volume) 33 g/dL 32-36 Automated erythrocyte distribution width ratio 14.5 % 10.0- 14.5 Automated blood platelet count (count/volume) 183 10*3/uL 130-400 Automated blood platelet mean volume measurement 11.2 [foz_us] 7.4-10.4 Automated blood neutrophils/100 leukocytes 46 % 42-75 Automated blood lymphocytes/100 leukocytes 35 % 12-44 Blood monocytes/100 leukocytes 14 % 0-12 Automated blood eosinophils/100 leukocytes 4 % 0-10 Automated blood basophils/100 leukocytes 1 % 0-10 Blood neutrophils automated count (number/volume) 5.4 10*3 1.8-7.8 Blood lymphocytes automated count (number/volume) 4.1 10*3 1.0-4.0 Blood monocytes automated count (number/volume) 1.6 10*3 0.0- 1.0 Automated eosinophil count 0.5 10*3/uL 0.0-0.3 Automated blood basophil count (count/volume) 0.1 10*3/uL 0.0-0.1 PT panel in platelet poor plasma by coagulation assay - 05/26/19 12:05 Prothrombin time (PT) in platelet poor plasma by coagulation assay 12.9 s 12.2-14.7 INR in platelet poor plasma or blood by coagulation assay 0.9 0.8-1.4 Activated partial thromboplastin time (aPTT) in platelet poor plasma bycoagulation assay - 05/26/19 12:05 Activated partial thromboplastin time (aPTT) in platelet poor plasma bycoagulation assay 28 s 24-35 Fibrin D-dimer FEU measurement in platelet poor plasma (mass/volume) - 05/26/19 12:05 Fibrin D-dimer FEU measurement in platelet poor plasma (mass/volume) 0.26 ug/mL 0.00-0.49 Comprehensive metabolic panel - 05/26/19 12:05 Serum or plasma sodium measurement (moles/volume) 142 mmol/L 135-145 Serum or plasma potassium measurement (moles/volume) 4.2 mmol/L 3.6-5.0 Serum or plasma chloride measurement (moles/volume) 105 mmol/L 98-107 Carbon dioxide 25 mmol/L 21-32 Serum or plasma anion gap determination (moles/volume) 12 mmol/L 5-14 Serum or plasma urea nitrogen measurement (mass/volume) 14 mg/dL 7-18 Serum or plasma creatinine measurement (mass/volume) 0.97 mg/dL 0.60-1.30 Serum or plasma urea nitrogen/creatinine mass ratio 14 NRG Serum or plasma creatinine measurement with calculation of estimated glomerular filtration rate > NRG Serum or plasma glucose measurement (mass/volume) 87 mg/dL 70-105 Serum or plasma calcium measurement (mass/volume) 10.0 mg/dL 8.5-10.1 Serum or plasma total bilirubin measurement (mass/volume) 0.5 mg/dL 0.1-1.0 Serum or plasma alkaline phosphatase measurement (enzymatic activity/volume) 80 U/L 40-136 Serum or plasma aspartate aminotransferase measurement (enzymatic activity/volume) 16 U/L 5-34 Serum or plasma alanine aminotransferase measurement (enzymatic activity/volume) 25 U/L 0-55 Serum or plasma protein measurement (mass/volume) 7.3 g/dL 6.4-8.2 Serum or plasma albumin measurement (mass/volume) 4.4 g/dL 3.2-4.5 CALCIUM CORRECTED 9.7 mg/dL 8.5-10.1 Serum or plasma troponin i.cardiac measurement (mass/volume) - 05/26/19 12:05 Serum or plasma troponin i.cardiac measurement (mass/volume) < ng/mL <0.028 THYROID STIMULATING HORMONE - 05/26/19 12:05 THYROID STIMULATING HORMONE 1.99 u[iU]/mL 0.35-4.94 Complete urinalysis with reflex to culture - 05/26/19 13:30 Urine color determination YELLOW NRG Urine clarity determination CLEAR NRG Urine pH measurement by test strip 7 5-9 Specific gravity of urine by test strip 1.005 1.016-1.022 Urine protein assay by test strip, semi-quantitative NEGATIVE NEGATIVE Urine glucose detection by automated test strip NEGATIVE NEGATIVE Erythrocytes detection in urine sediment by light microscopy 1+ NEGATIVE Urine ketones detection by automated test strip NEGATIVE NEGATIVE Urine nitrite detection by test strip NEGATIVE NEGATIVE Urine total bilirubin detection by test strip NEGATIVE NEGATIVE Urine urobilinogen measurement by automated test strip (mass/volume) NORMAL NORMAL Urine leukocyte esterase detection by dipstick NEGATIVE NEGATIVE Automated urine sediment erythrocyte count by microscopy (number/high power field) RARE NRG Automated urine sediment leukocyte count by microscopy (number/high power field) NONE NRG Bacteria detection in urine sediment by light microscopy NEGATIVE NRG Squamous epithelial cells detection in urine sediment by light microscopy NONE NRG Crystals detection in urine sediment by light microscopy NONE NRG Casts detection in urine sediment by light microscopy NONE NRG Mucus detection in urine sediment by light microscopy NEGATIVE NRG Complete urinalysis with reflex to culture NO NRG Urine drug screening test - 05/26/19 13:30 Urine phencyclidine detection by screening method NEGATIVE NEGATIVE Urine benzodiazepines detection by screening method NEGATIVE NEGATIVE Urine cocaine detection NEGATIVE NEGATIVE Urine amphetamines detection by screening method NEGATIVE NEGATIVE Urine methamphetamine detection by screening method NEGATIVE NEGATIVE Urine cannabinoids detection by screening method NEGATIVE NEGATIVE Urine opiates detection by screening method NEGATIVE NEGATIVE Urine barbiturates detection NEGATIVE NEGATIVE Screening urine tricyclic antidepressants detection NEGATIVE NEGATIVE Urine methadone detection by screening method NEGATIVE NEGATIVE Urine oxycodone detection NEGATIVE NEGATIVE Urine propoxyphene detection NEGATIVE NEGATIVE Encounters ACCT No. Visit Date/Time Discharge Status Pt. Type Provider Facility Loc./Unit Complaint [id number] 02/10/2017 21:14:00 02/11/2017 06:05:00 DIS Outpatient ESTIVEN RENAE MD [facility] SLEEP SNORING,HTN,MOOD DISORDER [id number] 11/18/2015 10:30:00 11/18/2015 23:59:59 CLS Outpatient AURA MOSELEY Carlito ROLL EDGE MACHINE OPERATOR [facility] RE[facility]AB [id number] 05/07/2015 08:03:00 06/09/2015 16:18:00 DIS Outpatient TESFAYE DO, MARIANGEL Spann [facility] [id number] 04/07/2015 08:57:00 04/07/2015 00:01:00 DIS Outpatient MARIANGEL CARLIN DO [facility] [id number] 11/24/2014 11:27:00 11/24/2014 23:59:59 CLS Outpatient AMIRA WINSLOW ROLL EDGE MACHINE OPERATOR [facility] RAD [id number] 11/11/2014 12:22:00 11/11/2014 23:59:59 CLS Outpatient AMIRA WINSLOW ROLL EDGE MACHINE OPERATOR [facility] RAD [id number] 11/02/2014 15:11:00 11/02/2014 16:07:00 DIS Emergency AMIRA WINSLOW ROLL EDGE MACHINE OPERATOR [facility] ER [id number] 05/26/2019 12:13:00 Document Registration [id number] 05/07/2015 13:45:00 Document Registration [id number] 05/07/2015 13:45:00 Document Registration [id number] 08/31/2011 15:34:00 Document Registration [id number] 01/02/2010 09:40:00 Document Registration [id number] 05/07/2015 08:03:32 ACT Document Registration
--- NOTE | 2019-05-26 17:15 | NUR ---
PENELOPE ARECHIGA admitted to room 428-1, with an admitting diagnosis of AMNESIA, on 05/26/19 from ED via WC, accompanied by . PENELOPE ARECHIGA introduced to surroundings, call light, bed controls, phone, TV, temperature control, lights, meal times, smoking policy, visitor policy, side rail policy, bathrooms and showers. PENELOPE ARECHIGA verbalizes understanding that [facility] is not responsible for the loss or damage to any personal effects or valuables that are kept in the patients posession during their hospitalization. The following Patient Care Plans were discussed with the PT AND : Discharge Planning, PAIN, AND ALTERED MENTAL STATUS. PENELOPE ARECHIGA verbalizes understanding of Interdisciplinary Patient Education. Patient and/or family were informed about the Rapid Response Team and its purpose. REC'D PER WC FROM ED. ALERT AND ORIENTED X4. SEE ASSESSMENT. AT BEDSIDE.
[2019-05-26 17:34] VITALS: BP 173/94
[2019-05-26] MEDS ORDERED: CATHETER FLUSH 10 ML SYR IV PRN (17:45)
[2019-05-26 17:58] VITALS: BP 167/100
--- NOTE | 2019-05-26 17:59 | NUR ---
DR[facility]
[2019-05-26] MEDS ORDERED: lisINopril 40 MG (PRINIVIL) TABLET ONE (18:05)
[2019-05-26] MEDS ORDERED: DILTIAZEM 240 MG (CARDIZEM CD) CAP PO ONE ×2 (18:09→18:15)
[2019-05-26] MEDS ORDERED: lisINopril 20 MG (PRINIVIL) TABLET PO ONE (18:15)
--- NOTE | 2019-05-26 18:15 | NUR ---
ORDERS REC'D. MEDS GIVEN ORDERED.
[2019-05-26 19:10] VITALS: BP 155/98
[2019-05-26] MEDS ORDERED: diphenhydrAMINE 25 MG TAB (BENADRYL) PO PRN ×3 (20:30→22:00)
[2019-05-26] MEDS: CATHETER FLUSH 10 ML SYR IV SCH (20:52)
[2019-05-26] MEDS ORDERED: ATORVASTATIN 10 MG (LIPITOR) TABLET PO SCH (21:00)
[2019-05-26] MEDS ORDERED: LOPERAMIDE 2 MG (IMODIUM) TABLET PO PRN (21:15)
[2019-05-26] MEDS ORDERED: HYDROcodone/APAP 5 MG/325 MG (LORTAB) TAB PO PRN (21:15)
[2019-05-26] MEDS ORDERED: ACETAMINOPHEN 500 MG TAB (TYLENOL) PO PRN (21:15)
[2019-05-26] MEDS ORDERED: ALPRAZolam 0.25 MG (XANAX) TAB PO PRN (21:15)
[2019-05-26] MEDS ORDERED: ONDANSETRON 4 MG/2 ML (SDV) Z0FRAN IVP PRN (21:15)
[2019-05-26] MEDS ORDERED: DOCUSATE SODIUM 100 MG (COLACE) CAP PO PRN (21:15)
[2019-05-26] MEDS ORDERED: fentaNYL INJECTION 100 MCG/2 ML AMP IVP PRN (21:15)
[2019-05-26] MEDS ORDERED: MELATONIN 3 MG TABLET PO PRN (21:15)
[2019-05-26] MEDS ORDERED: ONDANSETRON 4 MG (ZOFRAN) ORAL DISSOLVE TAB PO PRN (21:15)
[2019-05-26] MEDS ORDERED: CALCIUM CARBONATE 500 MG (TUMS) TAB.CHEW PO PRN (21:15)
[2019-05-27 00:59] VITALS: BP 132/86
[2019-05-27 04:00] VITALS: BP 117/80
[2019-05-27] MEDS: CATHETER FLUSH 10 ML SYR IV SCH ×2 (05:09→13:13)
[2019-05-27 05:51] LABS: BASOPHILS # (AUTO) 0.1 10^3/uL (0.0-0.1); BASOPHILS % (AUTO) 1 % (0-10); EOSINOPHILS # (AUTO) 0.4 10^3/uL (0.0-0.3); EOSINOPHILS % (AUTO) 4 % (0-10); HEMATOCRIT 48 % (40-54); HEMOGLOBIN 15.7 G/DL (13.3-17.7); LYMPHOCYTES # (AUTO) 3.5 X 10^3 (1.0-4.0); LYMPHOCYTES % (AUTO) 35 % (12-44); MEAN CORPUSCULAR HEMOGLOBIN 31 PG (25-34); MEAN CORPUSCULAR HGB CONC 33 G/DL (32-36); MEAN CORPUSCULAR VOLUME 94 FL (80-99); MEAN PLATELET VOLUME 11.4 FL (7.4-10.4); MONOCYTES # (AUTO) 1.2 X 10^3 (0.0-1.0); MONOCYTES % (AUTO) 12 % (0-12); NEUTROPHILS % (AUTO) 49 % (42-75); PLATELET COUNT 177 10^3/uL (130-400); RED CELL DISTRIBUTION WIDTH 14.6 % (10.0-14.5); WHITE BLOOD COUNT 10.2 10^3/uL (4.3-11.0)
[2019-05-27 06:17] LABS: ALANINE AMINOTRANSFERASE 22 U/L (0-55); ALBUMIN 3.9 GM/DL (3.2-4.5); ALKALINE PHOSPHATASE 78 U/L (40-136); BILIRUBIN,TOTAL 0.6 MG/DL (0.1-1.0); BUN/CREATININE RATIO 12; CALCIUM 9.4 MG/DL (8.5-10.1); CARBON DIOXIDE 26 MMOL/L (21-32); CHLORIDE 105 MMOL/L (98-107); CHOLESTEROL 93 MG/DL (< 200); CREATININE SERUM 0.97 MG/DL (0.60-1.30); GFR ESTIMATED > 60; GLUCOSE 102 MG/DL (70-105); HDL CHOLESTEROL 20 MG/DL (40-60); POTASSIUM 4.5 MMOL/L (3.6-5.0); SODIUM 142 MMOL/L (135-145); TOTAL PROTEIN 6.3 GM/DL (6.4-8.2); TRIGLYCERIDES 126 MG/DL (<150); VLDL CHOLESTEROL 25 MG/DL (5-40)
[2019-05-27] MEDS ORDERED: OMEP20CA12 PO ×2 (07:31→09:20)
[2019-05-27] MEDS ORDERED: ATOR10TA66 PO ×2 (07:31→09:20)
[2019-05-27 08:00] VITALS: BP 132/75
[2019-05-27] MEDS ORDERED: DILTIAZEM 240 MG (CARDIZEM CD) CAP PO SCH (09:00)
[2019-05-27] MEDS ORDERED: BENAZEPRIL 40 MG PO SCH (09:00)
[2019-05-27] MEDS ORDERED: SENNA W/DOCUSATE (SENOKOT S) TABLET PO SCH (09:00)
[2019-05-27] MEDS ORDERED: ASPIRIN 81 MG CHEW (CHILDREN'S ASA) PO SCH (09:00)
[2019-05-27] MEDS ORDERED: BENA40TA5 PO (09:20)
[2019-05-27] MEDS ORDERED: ASPI-999 PO (09:20)
[2019-05-27] MEDS ORDERED: OMG1KC PO (09:25)
[2019-05-27] MEDS ORDERED: DILT240C PO (09:25)
[2019-05-27] MEDS ORDERED: TR1C15 TOP (09:27)
--- NOTE | 2019-05-27 09:27 | NUR ---
SPOKE WITH THE PATIENTS ABOUT MEDICATIONS. SHE HAD THREE OF HIS PRESCRIPTION BOTTLES WITH HER BUT NOT THE DILTIAZEM, SHE DID HAVE THE STRENGTH ON HER PHONE. [facility] FILLED DILTIAZEM 24HR 240MG BID #[id number] 03-28-19 - THEY REPORT THEY DID VERIFY WITH THE PRESCRIBED THEY WANTED THE 24HR CAPSULES BID HOWEVER THE PATENT REPORTS HE IS ONLY TAKING IT ONCE DAILY. HE TAKES FISH OIL AND ASPIRIN 81MG DAILY OTC.
--- NOTE | 2019-05-27 10:32 | NUR ---
PRIOR TO A.M. MEDICATIONS PULSE WAS 70 BPM AND B/P WAS 132/75.
[2019-05-27 12:00] VITALS: BP 168/89
--- NOTE | 2019-05-27 12:46 | NUR ---
Initial visit with pt, his Emily, and brother Lon. 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 Lon attends [facility] [facility] [employer] in [place]. Mutually encouraging and loving relationships demonstrated this visit. Pt shared about his recent amnesia, and corresponding fears and feelings resulting from this experience. Surveillance System Monitor offered prayer and compassionate presence.
[2019-05-27] MEDS ORDERED: LORazepam 1 MG (ATIVAN) TAB PO NR (13:27)
[2019-05-27] MEDS ORDERED: CEFA500C PO (15:19)
--- NOTE | 2019-05-27 15:23 | Diagnostic Imaging Report ---
PROCEDURE: MR imaging of the brain without contrast. TECHNIQUE: Multiplanar, multisequence MR imaging of the brain was performed without contrast. INDICATION: Memory loss. COMPARISON: CTA head and neck from 05/26/2019. FINDINGS: No restricted water diffusion or hemosiderin deposition. No abnormal intracranial signal. Mild generalized cerebral and cerebellar parenchymal volume loss. Normal morphology including the major midline structures, sella, posterior fossa, and cerebellopontine angle. No hydrocephalus or extra-axial fluid collections. Normal intracranial flow voids. The orbits are unremarkable. Mucus retention cyst in the floor of the right maxillary sinus measures up to 3.0 cm. The mastoids are clear. Normal bone marrow signal. IMPRESSION: 1. No acute intracranial MRI findings. 2. Mild generalized parenchymal volume loss is age appropriate. 3. Mucus retention cyst in the floor of the right maxillary sinus. Dictated by: Dictated on workstation # [id number]
--- NOTE | 2019-05-28 12:11 | Short Stay Summary ---
History of Present Illness History of Present Illness Reason for visit/HPI 59 yo male brought to hospital due to altered mental status. He remembers waking up and making coffee in the morning, then he went to do some work on a car, and doesn't really even remember driving there. His was with him and reports he was not making sense. He denies any other symptoms, and today feels fine and alert and oriented. He states he does drink alcohol at times and drank quite a bit last weekend, but last drink was 4 days ago. He denies any substance use since many years ago. He does not take any psych meds. Date of Admission May 26, 2019 at 16:04 Date of Discharge May 27, 2019 at 15:55 Time Seen by Provider: 11:00 Attending Physician Rui Myers MD Admitting Physician [place] Consult Allergies and Home Medications Allergies Coded Allergies: NKANo Known Allergies (Verified Allergy, Mild, 05/26/19) Home Medications Aspirin 81 Mg Tab.chew, 81 MG PO DAILY, (Reported) Atorvastatin Calcium 10 Mg Tablet, 10 MG PO HS, (Reported) Benazepril HCl 40 Mg Tab, 40 MG PO DAILY, (Reported) Cefadroxil 500 Mg Capsule, 500 MG PO BID Prescribed by: RUI MYERS on 05/27/19 1519 Diltiazem HCl 240 Mg Cap.er.24h, 240 MG PO DAILY, (Reported) [place] 3 Polyunsat Fatty Acids 1,000 Mg Cap, 1,000 MG PO DAILY, (Reported) Omeprazole 20 Mg Capsule.dr, 20 MG PO DAILY, (Reported) Triamcinolone Acet 15 Gm Cr, TOP BID PRN for BUMPS ON ARMS, (Reported) Patient Home Medication List Home Medication List Reviewed: Yes Past Edkhhad-Baqcfr-Emmuuy Hx Patient Social History Alcohol Use: Occasionally Uses Number of Drinks Today: 0 Alcohol Beverage of Choice: Beer Recreational Drug Use: No Smoking Status: Current Everyday Smoker Type Used: Cigarettes Physical Abuse Screen: No Sexual Abuse: No Recent Foreign Travel: No Contact w/other who traveled: No Recent Hopitalizations: No Recent Infectious Disease Expo: No Immunizations Up To Date Tetanus Booster (TDap): Unknown Pediatric: Yes Seasonal Allergies Seasonal Allergies: No Surgeries Yes Orthopedic Respiratory Yes Currently Using CPAP: No Currently Using BIPAP: No Cardiovascular Yes Hypertension Neurological No Genitourinary No Gastrointestinal No Musculoskeletal No Endocrine History of Endocrine Disorders: No HEENT History of HEENT Disorders: No Cancer No Psychosocial History of Psychiatric Problem: No Integumentary History of Skin or Integumenta: Yes (RASH ON BACK) Skin/Integumentary Disorders: Recent Skin Changes Blood Transfusions History of Blood Disorders: No Family Medical History Significant Family History: No Pertinent Family Hx Review of Systems Constitutional: No fever EENTM: No nose congestion, No throat pain Respiratory: No cough Cardiovascular: No chest pain Gastrointestinal: No abdominal pain, No constipation, No diarrhea, No nausea, No vomiting Genitourinary: No dysuria Musculoskeletal: No joint pain Skin: rash (itchy red bumps on back x 2 weeks after some sun exposure) Psychiatric/Neurological: See HPI Physical Exam Vital Signs Vital Signs - First Documented 05/26/19 11:58 Temp 97.8 Pulse 84 Resp 14 B/P (MAP) 156/112 (127) Pulse Ox 96 O2 Delivery Room Air Capillary Refill : Less Than 3 SecondsLess Than 3 Seconds Height, Weight, BMI Height: 6'3.00" Weight: 276lbs. 10.0oz. 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 Norm as Tested; No Abnormal Cerebellar Tests Skin: Normal Color, Warm/Dry Clinical Quality Measures DVT/VTE Risk/Contraindication: Risk Factor Score Per Nursin RFS Level Per Nursing on Admit: 3=High Short Stay Diagnosis Discharge Diagnosis-Short Stay Admission Diagnosis: Altered mental status Final Discharge Diagnosis: Altered mental status Conclusion Labs Laboratory Tests Test 05/27/19 05:15 05/27/19 05:20 Range/Units Sodium Level 142 135-145 MMOL/L Potassium Level 4.5 3.6-5.0 MMOL/L Chloride Level 105 98-107 MMOL/L Carbon Dioxide Level 26 21-32 MMOL/L Anion Gap 11 5-14 MMOL/L Blood Urea Nitrogen 12 7-18 MG/DL Creatinine 0.97 0.60-1.30 MG/DL Estimat Glomerular Filtration Rate > 60 BUN/Creatinine Ratio 12 Glucose Level 102 70-105 MG/DL Calcium Level 9.4 8.5-10.1 MG/DL Corrected Calcium 9.5 8.5-10.1 MG/DL Total Bilirubin 0.6 0.1-1.0 MG/DL Aspartate Amino Transf (AST/SGOT) 18 5-34 U/L Alanine Aminotransferase (ALT/SGPT) 22 0-55 U/L Alkaline Phosphatase 78 40-136 U/L Total Protein 6.3 L 6.4-8.2 GM/DL Albumin 3.9 3.2-4.5 GM/DL Triglycerides Level 126 <150 MG/DL Cholesterol Level 93 < 200 MG/DL LDL Cholesterol Direct 60 1-129 MG/DL VLDL Cholesterol 25 5-40 MG/DL HDL Cholesterol 20 L 40-60 MG/DL White Blood Count 10.2 4.3-11.0 10^3/uL Red Blood Count 5.07 4.35-5.85 10^6/uL Hemoglobin 15.7 13.3-17.7 G/DL Hematocrit 48 40-54 % Mean Corpuscular Volume 94 80-99 FL Mean Corpuscular Hemoglobin 31 25-34 PG Mean Corpuscular Hemoglobin Concent 33 32-36 G/DL Red Cell Distribution Width 14.6 H 10.0-14.5 % Platelet Count 177 130-400 10^3/uL Mean Platelet Volume 11.4 H 7.4-10.4 FL Neutrophils (%) (Auto) 49 42-75 % Lymphocytes (%) (Auto) 35 12-44 % Monocytes (%) (Auto) 12 0-12 % Eosinophils (%) (Auto) 4 0-10 % Basophils (%) (Auto) 1 0-10 % Neutrophils # (Auto) 5.0 1.8-7.8 X 10^3 Lymphocytes # (Auto) 3.5 1.0-4.0 X 10^3 Monocytes # (Auto) 1.2 H 0.0-1.0 X 10^3 Eosinophils # (Auto) 0.4 H 0.0-0.3 10^3/uL Basophils # (Auto) 0.1 0.0-0.1 10^3/uL Conclusion/Plan Altered mental status- resolved but with unknown etiology, no medications to explain, labs unremarkable and CT head unremarkable, CTA head with mild at herosclerosis of carotid bulbs, no large vessel occlusion, aneurysm, AVM or mass. MRI brain with no acute intracranial findings, mucous retention cyst in right maxillary sinus floor. RUI MYERS MD May 28, 2019 12:11
--- NOTE | 2019-05-28 15:15 | Discharge Instructions ---
Discharge Formerly [facility], 1928–1983 Discharge Medications New Medications: Cefadroxil (Cefadroxil) 500 Mg Capsule 500 MG PO BID for 7 Days, #14 CAP 0 Refills Continued Medications: Aspirin (Aspirin) 81 Mg Tab.chew 81 MG PO DAILY, TAB Atorvastatin Calcium (Atorvastatin Calcium) 10 Mg Tablet 10 MG PO HS, TAB Benazepril HCl (Benazepril HCl) 40 Mg Tab 40 MG PO DAILY, TAB Diltiazem HCl (Diltiazem 24Hr ER) 240 Mg Cap.er.24h 240 MG PO DAILY, CAP [place] 3 Polyunsat Fatty Acids (Fish Oil 1,000 mg Capsule) 1,000 Mg Cap 1000 MG PO DAILY, CAP Omeprazole (Omeprazole) 20 Mg Capsule.dr 20 MG PO DAILY, CAP Triamcinolone Acet (Triamcinolone Acetonide 0.1% Cream) 15 Gm Cr TOP BID PRN for BUMPS ON ARMS, EA Patient Instructions Goal/Follow Up Appt: Follow up with Carolynn Maddox on 05/31 at 2:40 pm. Return to [facility] For: Fever, confusion, weakness Activity & Diet Discharge Diet: Low Sodium Diet Activity as Tolerated: Yes RUI FERRELL MD May 27, 2019 12:00
== END 2019-05-27 15:38 | disposition home or self-care (01) ==
LOC: EDUNIT# 11:51 → ER 11:52 → UNDOADMOB 16:04 → 4TH 16:04 → UNDODISOB 05-27 15:55
PROVIDERS: ADMIT Internal Medicine; ATTEND Family Medicine
DX: R41.82 Altered mental status, unspecified (principal); I10 Essential (primary) hypertension; F17.210 Nicotine dependence, cigarettes, uncomplicated; Z79.899 Other long term (current) drug therapy
CPT/HCPCS: 36415; 70450; 70496; 70498; 70551; 71045; 80053; 80061; 80306; 81000; 82962; 84443; 84484; 85025; 85379; 85610; 85730; 93005; 93041; 96360; G0378

== ENCOUNTER → 2019-11-12 | Outpatient (CLI) | payer MEDICARE ==
[~2019-11-12] MED LIST changes: +ASPI-999 PO; +ATOR10TA66 PO; +BENA40TA5 PO; +CEFA500C PO; +DILT240C PO; +OMEP20CA13 PO; +OMG1KC PO; +TR1C15 TOP
--- NOTE | 2019-11-12 13:41 | Diagnostic Imaging Report ---
INDICATION: Cough. TIME OF EXAM: 1:01 p.m. COMPARISON: Correlation is made with prior chest 05/26/2019. FINDINGS: The heart size is normal. The pulmonary vascularity is unremarkable. The lungs are clear. No infiltrate, effusion or pneumothorax is detected. IMPRESSION: No acute cardiopulmonary process is detected. Dictated by: Dictated on workstation # [id number]
== END ==
LOC: RAD 12:40
PROVIDERS: ATTEND Nurse Practitioner Family
DX: L23.89 Allergic contact dermatitis due to other agents (principal); R05 Cough
CPT/HCPCS: 71046

== ENCOUNTER 2022-10-29 20:24 | Emergency (ER) | payer MEDICARE, MEDICAID ==
[~2022-10-29] VITALS: Ht 190.5 cm; Wt 113.9 kg
[~2022-10-29 20:24] MED LIST changes: -BENA40TA5 PO; +BENA40TA84 PO; -DILT240C PO; +DILT240C91 PO; -OMEP20CA13 PO; +OMEP20CA18 PO
--- NOTE | 2022-10-29 20:34 | ED Abdominal Pain ---
General Stated Complaint: ABD PAIN History of Present Illness Date Seen by Provider: Oct 29, 2022 Time Seen by Provider: 20:34 Initial Comments 62 y/o male presents tonight with c/o severe RUQ pain that started after eating an hour and 45 minutes ago. Pt states he is having chills and had one episode of watery diarrhea. He reports he ate steak and cuban fries just prior to the pain starting. Pain is constant, sharp, stabbing, and does not radiate. He has not taken anything OTC. Has h/o GERD but denies any other GI problems. Timing/Duration: 1 Hour Severity/Quality: Severe, Sharp, Stabbing Location: RUQ Radiation: No Radiation Activities at Onset: None Modifying Factors: Worsens With Eating, Worsens With Palpation Associated Symptoms: No Back Pain, No Chest Pain; Fever/Chills (chills, denies fever); No Fatigue, No Heartburn, No Nausea/Vomiting, No Shortness of Air, No Sw elling/Mass in Abdomen, No Syncope, No Weakness (STEPH TIJERINA APRN) Allergies and Home Medications Allergies Coded Allergies: BARBIEANo Known Allergies (Verified Allergy, Mild, 05/26/19) Patient Home Medication List Home Medication List Reviewed: Yes (STEPH TIJERINA APRN) Aspirin (Aspirin) 81 Mg Tab.chew, 81 MG PO DAILY, (Reported) Entered as Reported by: ARIANNE CROFT on 05/27/19919 Atorvastatin Calcium (Atorvastatin Calcium) 10 Mg Tablet, 10 MG PO HS, (Reported) Entered as Reported by: ARIANNE CROFT on 05/27/19919 Benazepril HCl (Benazepril HCl) 40 Mg Tab, 40 MG PO DAILY, (Reported) Entered as Reported by: ARIANNE CROFT on 05/27/19919 Cefadroxil (Cefadroxil) 500 Mg Capsule, 500 MG PO BID Prescribed by: RUI FERRELL on 05/27/19 1519 Diltiazem HCl (Diltiazem 24Hr ER) 240 Mg Cap.er.24h, 240 MG PO DAILY, (Reported) Entered as Reported by: ARIANNE CROFT on 05/27/19 09 [place] 3 Polyunsat Fatty Acids (Fish Oil 1,000 mg Capsule) 1,000 Mg Cap, 1,000 MG PO DAILY, (Reported) Entered as Reported by: ARIANNE CROFT on 05/27/19 09 Omeprazole (Omeprazole) 20 Mg Capsule.dr, 20 MG PO DAILY, (Reported) Entered as Reported by: ARIANNE CROFT on 05/27/19 09 Triamcinolone Acet (Triamcinolone Acetonide 0.1% Cream) 15 Gm Cr, TOP BID PRN for BUMPS ON ARMS, (Reported) Entered as Reported by: ARIANNE CROFT on 05/27/19 09 Review of Systems Review of Systems Constitutional: chills; No fever, No malaise EENTM: No Symptoms Reported Respiratory: No Symptoms Reported Cardiovascular: No Symptoms Reported Gastrointestinal: Denies Abdomen Distended; Abdominal Pain; Denies Blood Streaked Stools, Denies Constipated; Diarrhea (one episode of watery diarrhea after eating tonight); Denies Nausea, Denies Poor Appetite, Denies Rectal Bleeding, Denies Vomiting Genitourinary: No Symptoms Reported Musculoskeletal: no symptoms reported Skin: no symptoms reported (STEPH TIJERINA APRN) Past Rofcjks-Rfjieq-Yyhync Hx Patient Social History Tobacco Use?: Yes Tobacco type used: Cigarettes Smoking Status: Current Everyday Smoker Substance use?: Yes Substance type: Other (CBD gummies) Alcohol Use?: Yes Alcohol Frequency: Rarely (STEPH TIJERINA APRN) Immunizations Up To Date Tetanus Booster (TDap): Unknown PED Vaccines UTD: Yes (STEPH TIJERINA APRN) Seasonal Allergies Seasonal Allergies: No (STEPH TIJERINA APRN) Past Medical History Surgeries: Yes Gallbladder, Orthopedic Respiratory: Yes Asthma Currently Using CPAP: No Currently Using BIPAP: No Cardiac: Yes Hypertension Neurological: No Genitourinary: No Gastrointestinal: Yes Gastroesophageal Reflux Musculoskeletal: No Endocrine: No HEENT: No Cancer: No Psychosocial: No Integumentary: Yes (RASH ON BACK) Recent Skin Changes Blood Disorders: No (STEPH TIJERINA APRN) Family Medical History No Pertinent Family Hx (STEPH TIJERINA APRN) Physical Exam Vital Signs Vital Signs - First Documented 10/29/22 10/29/22 20:28 22:19 Temp 35.8 Pulse 75 Resp 19 B/P (MAP) 126/75 (92) Pulse Ox 99 O2 Delivery Room Air (ALBA YOON DO) Vital Signs Capillary Refill : (STEPH TIJERINA APRN) Height/Weight/BMI Height: 6'3.00" Weight: 276lbs. 10.0oz. 125.969145rt; 32.5 BMI Method:Stated General Appearance: WD/WN, no apparent distress Respiratory: chest non-tender, lungs clear, normal breath sounds, no respiratory distress Cardiovascular: normal peripheral pulses, regular rate, rhythm, no edema Gastrointestinal: soft, no organomegaly; No distended, No guarding, No rebound; tenderness (RUQ) Extremities: normal range of motion, non-tender, normal inspection, no pedal edema Back: normal inspection, no CVA tenderness Skin: normal color, warm/dry (STEPH TIJERINA APRN) Progress/Results/Core Measures Results/Orders Lab Results Laboratory Tests Test 10/29/22 20:45 10/29/22 20:50 Range/Units White Blood Count 10.5 4.3-11.0 10^3/uL Red Blood Count 5.54 H 4.30-5.52 10^6/uL Hemoglobin 17.5 13.3-17.7 g/dL Hematocrit 51 40-54 % Mean Corpuscular Volume 91 80-99 fL Mean Corpuscular Hemoglobin 32 25-34 pg Mean Corpuscular Hemoglobin Concent 35 32-36 g/dL Red Cell Distribution Width 13.2 10.0-14.5 % Platelet Count 112 L 130-400 10^3/uL Mean Platelet Volume 11.2 9.0-12.2 fL Immature Granulocyte % (Auto) 0 % Neutrophils (%) (Auto) 37 L 42-75 % Lymphocytes (%) (Auto) 46 H 12-44 % Monocytes (%) (Auto) 14 H 0-12 % Eosinophils (%) (Auto) 2 0-10 % Basophils (%) (Auto) 1 0-10 % Neutrophils # (Auto) 3.9 1.8-7.8 10^3/uL Lymphocytes # (Auto) 4.8 H 1.0-4.0 10^3/uL Monocytes # (Auto) 1.4 H 0.0-1.0 10^3/uL Eosinophils # (Auto) 0.2 0.0-0.3 10^3/uL Basophils # (Auto) 0.1 0.0-0.1 10^3/uL Immature Granulocyte # (Auto) 0.0 0.0-0.1 10^3/uL Percent Immature Platelet Fraction 5.6 0.0-7.6 % Sodium Level 141 135-145 MMOL/L Potassium Level 3.2 L 3.6-5.0 MMOL/L Chloride Level 106 98-107 MMOL/L Carbon Dioxide Level 21 21-32 MMOL/L Anion Gap 14 5-14 MMOL/L Blood Urea Nitrogen 17 7-18 MG/DL Creatinine 1.40 H 0.60-1.30 MG/DL Estimat Glomerular Filtration Rate 57 BUN/Creatinine Ratio 12 Glucose Level 129 H 70-105 MG/DL Calcium Level 9.0 8.5-10.1 MG/DL Corrected Calcium 8.9 8.5-10.1 MG/DL Total Bilirubin 0.7 0.1-1.0 MG/DL Aspartate Amino Transf (AST/SGOT) 88 H 5-34 U/L Alanine Aminotransferase (ALT/SGPT) 47 0-55 U/L Alkaline Phosphatase 101 40-136 U/L Total Protein 7.6 6.4-8.2 GM/DL Albumin 4.1 3.2-4.5 GM/DL Lipase 31 8-78 U/L Urine Color YELLOW Urine Clarity CLEAR Urine pH 5.5 5-9 Urine Specific [place] >=1.030 1.016-1.022 Urine Protein TRACE H NEGATIVE Urine Glucose (UA) NEGATIVE NEGATIVE Urine Ketones NEGATIVE NEGATIVE Urine Nitrite NEGATIVE NEGATIVE Urine Bilirubin NEGATIVE NEGATIVE Urine Urobilinogen 0.2 < = 1.0 MG/DL Urine Leukocyte Esterase NEGATIVE NEGATIVE Urine RBC (Auto) 1+ H NEGATIVE Urine RBC 0-2 /HPF Urine WBC RARE /HPF Urine Crystals NONE /LPF Urine Bacteria TRACE /HPF Urine Casts PRESENT /LPF Urine Hyaline Casts 0-2 H /LPF Urine Mucus SMALL H /LPF Urine Culture Indicated NO (ALBA YOON DO) My Orders Orders - ALBA YOON DO Iohexol Injection (Omnipaque 350 Mg/Ml 1 (10/29/22 23:00) Received Contrast (Hold Metformin- Contr (10/29/22 23:00) Ns (Ivpb) (Sodium Chloride 0.9% Ivpb Bag (10/29/22 23:00) (ALBA YOON DO) Vital Signs/I&O 10/29/22 10/29/22 20:28 22:19 Temp 35.8 Pulse 75 78 Resp 19 16 B/P (MAP) 126/75 (92) 122/74 Pulse Ox 99 O2 Delivery Room Air Room Air (ALBA YOON DO) Progress Progress Note : Progress Note Pt in NAD, nontoxic appearing. CT scan reveals no acute findings. Pt reports complete resolution of pain following administration of toradol and is comfortable going home. (STEPH TIJERINA APRN) Departure Impression Primary Impression: Abdominal pain Disposition: HOME, SELF-CARE Condition: Improved Departure-Patient Inst. Decision time for Depature: 22:14 (TSEPH TIJERINA APRN) Referrals: GARTH LINK DO (PCP/Family) Primary Care Physician Patient Instructions: Severe Abdominal Pain, Adult (DC) Add. Discharge Instructions: Kite, low fat diet. Avoid overeating and eating large meals. Increase water intake. Continue your home medications as prescribed. Follow up with new/worsening concerns. ATTENDING PHYSICIAN NOTE: I WAS PHYSICALLY PRESENT ER PHYSICIAN, BUT I WAS NOT INVOLVED IN ANY DECISION MAKING OR ANY CARE OF THIS PATIENT AND I AM NOT COLLABORATING PHYSICIAN. (ALBA YOON DO) STEPH TIJERINA APRN Oct 29, 2022 20:34 ALBA YOON DO Nov 02, 2022 05:34
[2022-10-29] MEDS ORDERED: KETOROLAC 30 MG/ML VIAL IVP ONE (20:45)
[2022-10-29] MEDS ORDERED: LACTATED RINGERS 1,000 ML IV ONE (20:45)
[2022-10-29 20:51] LABS: EOSINOPHILS # (AUTO) 0.2 10^3/uL (0.0-0.3); EOSINOPHILS % (AUTO) 2 % (0-10)
[2022-10-29 20:53] LABS: BASOPHILS # (AUTO) 0.1 10^3/uL (0.0-0.1); BASOPHILS % (AUTO) 1 % (0-10); HEMATOCRIT 51 % (40-54); HEMOGLOBIN 17.5 g/dL (13.3-17.7); LYMPHOCYTES # (AUTO) 4.8 10^3/uL (1.0-4.0); LYMPHOCYTES % (AUTO) 46 % (12-44); MEAN CORPUSCULAR HEMOGLOBIN 32 pg (25-34); MEAN CORPUSCULAR HGB CONC 35 g/dL (32-36); MEAN CORPUSCULAR VOLUME 91 fL (80-99); MEAN PLATELET VOLUME 11.2 fL (9.0-12.2); MONOCYTES # (AUTO) 1.4 10^3/uL (0.0-1.0); MONOCYTES % (AUTO) 14 % (0-12); NEUTROPHILS # (AUTO) 3.9 10^3/uL (1.8-7.8); NEUTROPHILS % (AUTO) 37 % (42-75); PLATELET COUNT 112 10^3/uL (130-400); WHITE BLOOD COUNT 10.5 10^3/uL (4.3-11.0)
[2022-10-29 20:57] LABS: BILIRUBIN,URINE NEGATIVE (NEGATIVE); CLARITY,URINE CLEAR; COLOR,URINE YELLOW; GLUCOSE, URINE (UA) NEGATIVE (NEGATIVE); KETONES,URINE NEGATIVE (NEGATIVE); LEUKOCYTE ESTERASE ,URINE NEGATIVE (NEGATIVE); NITRITE,URINE NEGATIVE (NEGATIVE); PH,URINE 5.5 (5-9); PROTEIN,URINE TRACE (NEGATIVE)
[2022-10-29 21:05] LABS: BACTERIA,URINE TRACE /HPF; RBC,URINE 0-2 /HPF; WBC,URINE RARE /HPF
[2022-10-29 21:06] LABS: HYALINE CASTS, URINE 0-2 /LPF
[2022-10-29 21:16] LABS: ALBUMIN 4.1 GM/DL (3.2-4.5); BILIRUBIN,TOTAL 0.7 MG/DL (0.1-1.0); CREATININE SERUM 1.4 MG/DL (0.60-1.30); POTASSIUM 3.2 MMOL/L (3.6-5.0); TOTAL PROTEIN 7.6 GM/DL (6.4-8.2)
--- NOTE | 2022-10-29 22:03 | Diagnostic Imaging Report ---
EXAMINATION: CT abdomen and pelvis with intravenous contrast. TECHNIQUE: Multiple contiguous axial images were obtained through the abdomen and pelvis after the uneventful administration of intravenous contrast. All CT scans use one or more of the following dose optimizing techniques: automated exposure control, MA and/or KvP adjustment based on patient size and exam type or iterative reconstruction. HISTORY: SEVERE RUQ PAIN COMPARISON: None available. FINDINGS: Lung bases: The lung bases are clear. Solid organs: The liver is normal without focal lesion. The gallbladder is surgically absent. There is no biliary ductal dilation. Pancreas is normal. Spleen is normal. Adrenal glands are normal. No hydronephrosis. Bilateral renal cysts which require no follow-up. Bowel: The stomach and small bowel are normal without obstruction. The colon and appendix are normal. Peritoneum: There is no intraperitoneal free fluid or free air. No suspicious lymphadenopathy. Vasculature: Calcification of the aorta without aneurysm. Musculoskeletal: Degenerative changes of the spine without suspicious osseous lesion or compression fracture. Pelvis: The prostate gland is normal. The urinary bladder is normal. IMPRESSION: 1. No acute abnormality in the abdomen or pelvis. Dictated by: Dictated on workstation # [id number]
[2022-10-29 22:19] VITALS: BP 122/74
[2022-10-29] MEDS ORDERED: IOHEXOL 350 MG/ML 100 ML (OMNIPAQUE 350) VIAL IV ONE (23:00)
[2022-10-29] MEDS ORDERED: NS 100 ML (IVPB) BAG IV ONE (23:00)
[2022-10-29] MEDS ORDERED: HOLD METFORMIN - RECEIVED CONTRAST 20 ML VIAL IV SCH (23:00)
== END 2022-10-29 22:25 | disposition home or self-care (01) ==
LOC: EDUNIT# 20:24 → ER 20:26
DX: R10.11 Right upper quadrant pain (principal); F17.210 Nicotine dependence, cigarettes, uncomplicated
CPT/HCPCS: 36415; 74177; 80053; 81000; 83690; 85025